=== PATIENT | female | born 1945 | race Caucasian/White ===

== ENCOUNTER 2016-03-31 21:55 | Emergency (ER) | payer MEDICARE, MEDICAID ==
[2016-03-31 21:56] VITALS: BMI 43.4
== END 2016-03-31 23:05 | disposition left against medical advice (07) ==
LOC: ED 21:55
DX: Z53.21 Procedure and treatment not carried out due to patient leaving prior to being seen by health care provider (principal)

== ENCOUNTER 2016-04-03 17:21 | Emergency (ER) | payer MEDICARE, MEDICAID ==
[2016-04-03 17:36] VITALS: TEMP 97.4
[2016-04-03 17:40] VITALS: BMI 42.7
--- NOTE | 2016-04-03 18:28 | EDPRACDOC ---
- General Information Chief Complaint: Abdominal Pain Stated Complaint: ABD PAIN Time Seen by Provider: 04/03/16 17:56 Mode Of Arrival: Car Home Medications: Home Medications Celecoxib (anti-inflammatory) [Celebrex] 200 mg PO QAM 04/16/14 Clopidogrel Bisulfate [Plavix] 75 mg PO HS 04/16/14 Colesevelam HCl [Welchol] 1,875 mg PO BID 04/16/14 Cyclobenzaprine HCl [Flexeril] 10 mg PO HS 04/16/14 Fenofibric Acid (Choline) [Trilipix] 135 mg PO QAM 04/16/14 Furosemide [Lasix] 40 mg PO DAILY 04/16/14 Insulin Glargine [Lantus Pen] 51 units SQ BID 04/16/14 Montelukast Sodium [Singulair] 10 mg PO QAM 04/16/14 Nitroglycerin [Nitrolingual [place]] 1 spray SL Q5MX3 PRN 04/16/14 Omeprazole [Prilosec] 40 mg PO HS 04/16/14 Ranolazine [Ranexa] 500 mg PO BID 04/16/14 Temazepam [Restoril] 30 mg PO HS 04/16/14 Tramadol HCl [Ultram] 50 mg PO TID PRN 04/16/14 Oxcarbazepine [Trileptal] 300 mg PO BID 01/12/16 Valsartan [Diovan] 320 mg PO DAILY 01/12/16 Multivits-Min/Iron/FA/Lutein [Centrum Silver Women Tablet] 1 tab PO DAILY Acetaminophen [Tylenol 8 Hour/Tylenol Arthritis] 650 mg PO BID 04/03/16 Canagliflozin [Invokana] 100 mg PO DAILY 04/03/16 Clotrimazole [Antifungal] 1 applic TOP .AFTER SHOWER 04/03/16 Insulin Lispro [Humalog] 21 - 25 units SQ BID 04/03/16 Allergies/Adverse Reactions: Allergies Allergy/AdvReac Type Severity Reaction Status Date / Time oats Allergy Severe Anaphylaxis Verified 01/19/16 06:16 * oxycodone HCl [From Percodan] Allergy Unknown Rash-Genera Verified 01/19/16 06: 16 lized oxycodone terephthalate Allergy Unknown Rash-Genera Verified 01/19/16 06:16 [From Percodan] lized aspirin Allergy Nausea only Verified 01/19/16 06:16 codeine [Codeine] Allergy Nausea/Vomi Verified 01/19/16 06:16 ting latex [Latex] Allergy Rash-Genera Verified 01/19/16 06:16 lized monosodium glutamate Allergy Diarrhea Verified 01/19/16 06:17 pentazocine lactate Allergy Confusion Verified 01/19/16 06:16 [From Talwin] artificial sweetner Allergy Diarrhea Uncoded 04/03/16 17:35 - History of Present Illness Onset: 1. 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 (Dose/ tylenol- 1000 Time) ED Past Medical History - Patient Medical History Neurological History: Reports: Migraine (CHRONIC) Cardiac History: Reports: Coronary Artery Disease, Hypertension, Congestive Heart Failure, Heart Attack, Cardiac Catheterization (2003, 2004, 2009, 2010), Hypercholesterolemia Respiratory History: Reports: Asthma GI/ History: Reports: Kidney Stones, Gastroesophageal Reflux Musculoskeletal History: Reports: Arthritis (HANDS AND KNEES), Osteoarthritis Psychological History: Denies: Substance Use Disorder Systemic History: Reports: Diabetes Surgical History: Reports: Cholecystectomy, Cardiac Catheterization (2003, 2004 , 2009, 2010), Other (gamma knife neurosurgery for Trigeminal Neuralgia). Denies: Appendectomy - Family Medical History Reports: Cancer (father), Cardiac Disorders (FATHER). Denies: Hypertension, Diabetes, Stroke - Social Medical History Smoking Status: Never smoker Social History: Denies: Substance Use Disorder - Physical Exam Last recorded Vital Signs: Last Vital Signs Temp 97.4 F L 04/03/16 17:35 Pulse 80 04/03/16 17:35 Resp 20 04/03/16 17:35 BP 166/95 04/03/16 17:35 Pulse Ox 98 04/03/16 17:35 Oxygen Pulse Oxygen Saturation 98 O2 Device Oxygen Flow Rate Fraction of Inspired Oxygen ( FIO2) - Departure Instructions: Acute Abdominal Pain (ED) Referrals: Sameera Moctezuma PA [Primary Care Provider] - One Week Prescriptions: No Action Nitroglycerin [Nitrolingual [place]] 1 spray SL Q5MX3 PRN PRN Reason: Chest Pain Or Discomfort Temazepam [Restoril] 30 mg PO HS Omeprazole [Prilosec] 40 mg PO HS Cyclobenzaprine HCl [Flexeril] 10 mg PO HS Clopidogrel Bisulfate [Plavix] 75 mg PO HS Ranolazine [Ranexa] 500 mg PO BID Colesevelam HCl [Welchol] 1,875 mg PO BID Montelukast Sodium [Singulair] 10 mg PO QAM Furosemide [Lasix] 40 mg PO DAILY Fenofibric Acid (Choline) [Trilipix] 135 mg PO QAM Celecoxib (anti-inflammatory) [Celebrex] 200 mg PO QAM Tramadol HCl [Ultram] 50 mg PO TID PRN PRN Reason: Pain Insulin Glargine [Lantus Pen] 51 units SQ BID Valsartan [Diovan] 320 mg PO DAILY Oxcarbazepine [Trileptal] 300 mg PO BID Multivits-Min/Iron/FA/Lutein [Centrum Silver Women Tablet] 1 tab PO DAILY Insulin Lispro [Humalog] 21 - 25 units SQ BID Canagliflozin [Invokana] 100 mg PO DAILY Acetaminophen [Tylenol 8 Hour/Tylenol Arthritis] 650 mg PO BID Clotrimazole [Antifungal] 1 applic TOP .AFTER SHOWER
[2016-04-03] MEDS ORDERED: BUBBLE GUM ENEMA 480 ML ENEMA PR ONE (18:30)
--- NOTE | 2016-04-03 18:31 | EDPRACDOC ---
ED Rectal & Constipation Pain - General Information Chief Complaint: Abdominal Pain Information Source: Patient, Friend Mode of Arrival:: Car Home Medications: Home Medications Celecoxib (anti-inflammatory) [Celebrex] 200 mg PO QAM 04/16/14 Clopidogrel Bisulfate [Plavix] 75 mg PO HS 04/16/14 Colesevelam HCl [Welchol] 1,875 mg PO BID 04/16/14 Cyclobenzaprine HCl [Flexeril] 10 mg PO HS 04/16/14 Fenofibric Acid (Choline) [Trilipix] 135 mg PO QAM 04/16/14 Furosemide [Lasix] 40 mg PO DAILY 04/16/14 Insulin Glargine [Lantus Pen] 51 units SQ BID 04/16/14 Montelukast Sodium [Singulair] 10 mg PO QAM 04/16/14 Nitroglycerin [Nitrolingual [place]] 1 spray SL Q5MX3 PRN 04/16/14 Omeprazole [Prilosec] 40 mg PO HS 04/16/14 Ranolazine [Ranexa] 500 mg PO BID 04/16/14 Temazepam [Restoril] 30 mg PO HS 04/16/14 Tramadol HCl [Ultram] 50 mg PO TID PRN 04/16/14 Oxcarbazepine [Trileptal] 300 mg PO BID 01/12/16 Valsartan [Diovan] 320 mg PO DAILY 01/12/16 Multivits-Min/Iron/FA/Lutein [Centrum Silver Women Tablet] 1 tab PO DAILY Acetaminophen [Tylenol 8 Hour/Tylenol Arthritis] 650 mg PO BID 04/03/16 Canagliflozin [Invokana] 100 mg PO DAILY 04/03/16 Clotrimazole [Antifungal] 1 applic TOP .AFTER SHOWER 04/03/16 Insulin Lispro [Humalog] 21 - 25 units SQ BID 04/03/16 PEG-Electrolytes (Golytely) [Golytely] 4,000 ml PO DIR #1 each 04/03/16 Allergies/Adverse Reactions: Allergies Allergy/AdvReac Type Severity Reaction Status Date / Time oats Allergy Severe Anaphylaxis Verified 01/19/16 06:16 * oxycodone HCl [From Percodan] Allergy Unknown Rash-Genera Verified 01/19/16 06: 16 lized oxycodone terephthalate Allergy Unknown Rash-Genera Verified 01/19/16 06:16 [From Percodan] lized aspirin Allergy Nausea only Verified 01/19/16 06:16 codeine [Codeine] Allergy Nausea/Vomi Verified 01/19/16 06:16 ting latex [Latex] Allergy Rash-Genera Verified 01/19/16 06:16 lized monosodium glutamate Allergy Diarrhea Verified 01/19/16 06:17 pentazocine lactate Allergy Confusion Verified 01/19/16 06:16 [From Talwin] artificial sweetner Allergy Diarrhea Uncoded 04/03/16 17:35 - History of Present Illness Onset: 7-10 DAYS Symptoms started: Reports: Spontaneous Location: Reports: Rectum Symptoms: Reports: Pain Due To: Reports: Constipation History Of: Reports: Constipation, Laxative Use (USED MIRALAX AND COLACE INTERMITTENTLY). Denies: Narcotic Use, Iron Supplements Severity:: Reports: Moderate BM: Reports: Aching Worsens: Reports: Nothing Improves: Reports: Nothing Associated Sign & Symptoms: Denies: Nausea, Vomiting, Diarrhea, Blood in Stool, Fever, Rectal Bleeding - Other History Other History: PT HAS TRIED MANUAL DISIMACTION OF HARD FORMED STOOL SEVERAL TIMES WITHOUT RELIEF. 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[employer] Ibuprofen/Acetaminophen (Dose/ tylenol- 1000 Time) ED Past Medical History - History Reviewed Yes Nurses notes reviewed and agree except as marked - Patient Medical History Neurological History: Reports: Migraine (CHRONIC) Cardiac History: Reports: Coronary Artery Disease, Hypertension, Congestive Heart Failure, Heart Attack, Cardiac Catheterization (2003, 2004, 2009, 2010), Hypercholesterolemia Respiratory History: Reports: Asthma GI/ History: Reports: Kidney Stones, Gastroesophageal Reflux Musculoskeletal History: Reports: Arthritis (HANDS AND KNEES), Osteoarthritis Psychological History: Denies: Substance Use Disorder Systemic History: Reports: Diabetes Surgical History: Reports: Cholecystectomy, Cardiac Catheterization (2003, 2004 , 2009, 2010), Other (gamma knife neurosurgery for Trigeminal Neuralgia). Denies: Appendectomy - Family Medical History Reports: Cancer (father), Cardiac Disorders (FATHER). Denies: Hypertension, Diabetes, Stroke - Social Medical History Smoking Status: Never smoker Social History: Denies: Substance Use Disorder EDM Review of Systems - Review of Systems ROS Negative Except as Marked: Yes All systems reviewed and were negative except as marked - Physical Exam Constitutional: No apparent distress, Alert Last recorded Vital Signs: Last Vital Signs Temp 97.4 F L 04/03/16 17:35 Pulse 80 04/03/16 17:35 Resp 20 04/03/16 17:35 BP 166/95 04/03/16 17:35 Pulse Ox 98 04/03/16 17:35 Oxygen Pulse Oxygen Saturation 98 O2 Device Oxygen Flow Rate Fraction of Inspired Oxygen ( FIO2) - HEENT Head: Normal Eye Exam: negative: Edema, Pale Conjunctiva, Scleral Icterus Oropharynx: Normal. negative: Membranes Dry - GI Auscultation: Normal Palpation: Normal Tenderness: Non tender. negative: Guarding, Rebound, Rigidity Rodrigues's Sign: Negative - Bladder: Normal - Musculoskeletal Back: Normal - Integumentary Skin: Normal, Warm, Dry - Neurologic Memory Impaired: Normal Thought: Coherent Perception: Normal - Re-evaluation Re-evaluation 3 Re-evaluation Time: 19:59 (LARGE BM, SYMPTOMS RESOLVED) - Departure Disposition: Home Condition: Good Final Diagnosis: Obstipation Instructions: Constipation (ED), High Fiber Diet (ED), Acute Abdominal Pain (ED ), Obstipation (ED), Fleet Enema (ED) Education/Counseling Given To: Patient, Friend Education/Counseling Given Regarding: Diagnosis, Treatment, Prognosis Referrals: Sameera Moctezuma PA [Primary Care Provider] - One Week Prescriptions: New PEG-Electrolytes (Golytely) [Golytely] 4,000 ml PO DIR #1 each No Action Nitroglycerin [Nitrolingual [place]] 1 spray SL Q5MX3 PRN PRN Reason: Chest Pain Or Discomfort Temazepam [Restoril] 30 mg PO HS Omeprazole [Prilosec] 40 mg PO HS Cyclobenzaprine HCl [Flexeril] 10 mg PO HS Clopidogrel Bisulfate [Plavix] 75 mg PO HS Ranolazine [Ranexa] 500 mg PO BID Colesevelam HCl [Welchol] 1,875 mg PO BID Montelukast Sodium [Singulair] 10 mg PO QAM Furosemide [Lasix] 40 mg PO DAILY Fenofibric Acid (Choline) [Trilipix] 135 mg PO QAM Celecoxib (anti-inflammatory) [Celebrex] 200 mg PO QAM Tramadol HCl [Ultram] 50 mg PO TID PRN PRN Reason: Pain Insulin Glargine [Lantus Pen] 51 units SQ BID Valsartan [Diovan] 320 mg PO DAILY Oxcarbazepine [Trileptal] 300 mg PO BID Multivits-Min/Iron/FA/Lutein [Centrum Silver Women Tablet] 1 tab PO DAILY Insulin Lispro [Humalog] 21 - 25 units SQ BID Canagliflozin [Invokana] 100 mg PO DAILY Acetaminophen [Tylenol 8 Hour/Tylenol Arthritis] 650 mg PO BID Clotrimazole [Antifungal] 1 applic TOP .AFTER SHOWER
[2016-04-03 20:11] VITALS: BP 164/77; PULSE 72
== END 2016-04-03 20:15 | disposition home or self-care (01) ==
LOC: ED 17:21
DX: K59.00 Constipation, unspecified (principal)
CPT/HCPCS: 99284; A9270; J3490